=== PATIENT | female | born 1990 | race African-American/Black ===

== ENCOUNTER 2021-09-08 19:18 | Emergency (ER) | payer SELFPAY ==
[~2021-09-08 19:18] MED LIST: Iopamidol-370 76% 500 ML 1 ML ONE
[2021-09-08 20:08] LABS: Hemoglobin 10.9 g/dL (12.0-16.0); Mean Corpuscular Hemoglobin 25.3 pg (27.0-31.0); Mean Corpuscular Volume 78.9 fL (78.0-98.0); Mean Platelet Volume 8.6 fL (7.4-10.4); Platelet Count 261 thou/uL (130-400); RBC Distribution Width 12.8 % (11.5-14.5); Red Blood Cell (RBC) Count 4.31 mill/uL (4.20-5.40); White Blood Cell (WBC) Count 3.3 thou/uL (4.8-10.8)
[2021-09-08 20:23] LABS: ALT (SGPT) 7 U/L (8-55); AST (SGOT) 7 U/L (5-34); Albumin 3.6 g/dL (3.5-5.0); Alkaline Phosphatase 66 U/L (40-110); Anion Gap 10 mmol/L (10-20); BUN (Urea Nitrogen) 12 mg/dL (7.0-18.7); Bilirubin, Total 0.4 mg/dL (0.2-1.2); Calc. Creatinine Clearance 0 mL/min (70-130); Calcium 8.4 mg/dL (7.8-10.44); Carbon Dioxide 25 mmol/L (22-29); Chloride 105 mmol/L (98-107); Lipase 36 U/L (8-78); Potassium 3.9 mmol/L (3.5-5.1); Protein, Total 6.6 g/dL (6.0-8.3); Sodium 136 mmol/L (136-145)
[2021-09-08 20:27] LABS: Lymphocytes 64 % (21-51); MDiff Complete? YES; Monocytes 24 % (0-10); Neutrophil 11 % (42-75); Reactive Lymphocytes 1 % (0-10)
[2021-09-08 20:28] LABS: BHCG - Serum Negative (NEGATIVE); Pregs Control Background? CLEAR/WHITE (CLR/WHITE); Pregs Control Bar Appear? YES (CONTROL BAR)
[2021-09-08 20:28] LABS: Glucose 58 mg/dL (70-105)
[2021-09-08 22:30] LABS: Troponin I Less than 0.010 ng/mL (< 0.028)
[2021-09-09 12:14] LABS: SARS-CoV-2 PCR by NAA DETECTED (NotDetected)
== END 2021-09-08 23:01 | disposition home or self-care (01) ==
LOC: ERS 19:18
DX: U07.1 COVID-19 (principal); B20 Human immunodeficiency virus [HIV] disease; D72.819 Decreased white blood cell count, unspecified; K21.9 Gastro-esophageal reflux disease without esophagitis; F17.210 Nicotine dependence, cigarettes, uncomplicated
CPT/HCPCS: 36415; 36416; 71045; 71275; 80053; 83690; 84484; 84703; 85025; 85379; 93005; Q9967; U0003; U0005